=== PATIENT | female | born 1980 | race Caucasian/White ===

== ENCOUNTER 2020-12-14 10:32 | Emergency (ER) | payer BC ==
[2020-12-14] MEDS ORDERED: Nitrostat 0.4 MG (ED) SL ONE (10:43)
[2020-12-14] MEDS ORDERED: BABY ASPIRIN 81 MG CHEW PO ONE ×2 (10:43→11:02)
[2020-12-14] MEDS ORDERED: Sodium Chloride 0.9% 1000 ML 1,000 ML IV SCH (10:45)
[2020-12-14] MEDS ORDERED: Sodium Chloride 0.9% 1000 ML 1,000 ML ONE (10:58)
--- NOTE | 2020-12-14 11:00 | ERPHSYRPT ---
- History of Present Illness Time Seen by Provider: 12/14/20 10:57 Historian: patient Exam Limitations: no limitations Patient Subjective Stated Complaint: Pt states that for 2 days she has been having left chest discomfort with radiation to her left arm tingling in her fi ngers, feels like "ice" is going through her veins Triage Nursing Assessment: Pt brought self to [facility] and they sent her to the ER, vitals wnl, mild chest discomfort rated at 3/10, denies N&V, no edema, pulses normal, skin n/w/d, doesn't appear to be in any distress Physician History: Pt states that for 2 days she has been having left chest discomfort with radiation to her left arm tingling in her fingers, feels like "ice" is going through her veins Pt brought self to [facility] and they sent her to the ER, mild chest discomfort rated at 3/10, denies N&V, no edema, Timing/Duration: day(s) (two days) Activities at Onset: none Quality: fullness, tightness Location: substernal Chest Pain Radiation: arm Severity of Pain-Max: mild Severity of Pain-Current: mild Modifying Factors: Improves With: nothing Associated Symptoms: denies symptoms Prior Chest Pain/Cardiac Workup: no prior chest pain Nitro Today/Relief: no nitro taken today Aspirin Treatment Today: no aspirin today Body Map: 1 - chest tightmess 2 - tingling Allergies/Adverse Reactions: No Known Drug Allergies Allergy (Verified 12/14/20 10:50) Home Medications: Pantoprazole 20 mg [Protonix 20MG Tablet] 40 mg PO DAILY 07/17/15 [History] Amlodipine Besylate 5 mg [Norvasc 5 mg] 5 mg PO DAILY 12/14/20 [History] Lisinopril/Hydrochlorothiazide [Lisinopril-Hctz 20-12.5 mg Tab] 1 each PO BID 12/14/20 [History] Ondansetron ODT 4 MG [Zofran Odt 4 mg] 4 mg PO UD PRN 12/14/20 [History] Travel Risk - International Travel Have you traveled outside of the country in past 3 weeks: No - Coronavirus Screening Are you exhibiting any of the following symptoms?: No Close contact with a COVID-19 positive Pt in past 14-21 Days: No - Review of Systems Constitutional: No Fever, No Chills Eyes: No Symptoms Ears, Nose, & Throat: No Symptoms Respiratory: No Cough, No Dyspnea Cardiac: Chest Pain, No Edema, No Palpitations, No Syncope, No Orthopnea Abdominal/Gastrointestinal: No Abdominal Pain, No Nausea, No Vomiting, No Diarrhea Genitourinary Symptoms: No Dysuria Musculoskeletal: No Back Pain, No Neck Pain Skin: No Rash Neurological: No Dizziness, No Focal Weakness, No Sensory Changes Psychological: No Symptoms Endocrine: No Symptoms All Other Systems: Reviewed and Negative - Past Medical History Pertinent Past Medical History: Yes Neurological History: No Pertinent History ENT History: No Pertinent History Cardiac History: Hypertension Respiratory History: No Pertinent History Endocrine Medical History: No Pertinent History Musculoskeletal History: No Pertinent History GI Medical History: No Pertinent History History: No Pertinent History Psycho-Social History: No Pertinent History Female Reproductive Disorders: No Pertinent History - Past Surgical History Past Surgical History: Yes Neuro Surgical History: No Pertinent History Cardiac: No Pertinent History Respiratory: No Pertinent History Gastrointestinal: Cholecystectomy Genitourinary: No Pertinent History Female Surgical History: No Pertinent History Other Surgical History: ACL Repair leg knee - Social History Smoking Status: Current every day smoker How long have you smoked: 10yr Exposure to second hand smoke: Yes Drug Use: none Patient Lives Alone: No - Female History Hx Now: No - Nursing Vital Signs Nursing Vital Signs: Initial Vital Signs Temperature 99.1 F 12/14/20 10:39 Pulse Rate 79 12/14/20 10:39 Respiratory Rate 23 12/14/20 10:39 Blood Pressure 123/78 12/14/20 10:39 O2 Sat by Pulse Oximetry 100 12/14/20 10:39 Pain Scale Pain Intensity 3 - Physical Exam General Appearance: no apparent distress, alert Eye Exam: PERRL/EOMI, eyes nml inspection Ears, Nose, Throat Exam: normal ENT inspection, moist mucous membranes Neck Exam: normal inspection, non-tender, supple, full range of motion Respiratory Exam: normal breath sounds, lungs clear, No respiratory distress Cardiovascular Exam: regular rate/rhythm, normal heart sounds Gastrointestinal/Abdomen Exam: soft, No tenderness, No mass Back Exam: normal inspection, No CVA tenderness, No vertebral tenderness Extremity Exam: normal inspection, normal range of motion Neurologic Exam: alert, oriented x 3, cooperative, normal mood/affect, sensation nml, No motor deficits Skin Exam: normal color, warm, dry SpO2: 100 - Course Nursing assessment & vital signs reviewed: Yes EKG Interpreted by Me: Sinus Rhythm Rhythm Strip: Normal Sinus Rhythm - Radiology Exams Chest X-ray Interpretation: Reviewed by me, Negative Ordered Tests: Active Orders 24 hr Category Date Time Status Oxygen-ED Only Nasal Cannula 2 lpm Care 12/14/20 10:43 Active CHEST 1 VIEW (PORTABLE) Stat Exams 12/14/20 10:44 Taken CBC W DIFF Stat Lab 12/14/20 11:05 Completed CMP Stat Lab 12/14/20 11:05 Completed D-DIMER QUANTITATIVE Stat Lab 12/14/20 11:05 Completed NT PRO BNP Stat Lab 12/14/20 11:05 Completed TROPONIN Q3H Lab 12/14/20 11:05 Completed TROPONIN Q3H Lab 12/14/20 13:45 Ordered TROPONIN Q3H Lab 12/14/20 16:45 Ordered TROPONIN Q3H Lab 12/14/20 19:45 Ordered TROPONIN Q3H Lab 12/14/20 22:45 Ordered Medication Summary Generic Name Dose Route Start Last Admin Trade Name Freq PRN Reason Stop Dose Admin Sodium Chloride 1,000 mls @ 100 mls/hr 12/14/20 10:45 12/14/20 11:00 Sodium Chloride 0.9% 1000 Ml IV 01/13/21 10:44 100 mls/hr .Q10H DA Administration Discontinued Medications Generic Name Dose Route Start Last Admin Trade Name Freq PRN Reason Stop Dose Admin Aspirin 81 mg 12/14/20 10:43 12/14/20 11:03 Baby Aspirin 81 Mg Chew PO 12/14/20 10:44 Not Given STAT ONE Aspirin 324 mg 12/14/20 11:02 12/14/20 11:03 Baby Aspirin 81 Mg Chew PO 12/14/20 11:03 324 mg STAT ONE Administration Nitroglycerin 0.4 mg 12/14/20 10:43 12/14/20 11:01 Nitrostat 0.4 Mg (Ed) SL 12/14/20 10:44 0.4 mg STAT ONE Administration Lab/Rad Data: Laboratory Result Diagrams 12/14/20 11:05 12/14/20 11:05 Laboratory Results 12/14/20 12/14/20 12/14/20 Range/Units 11:05 11:05 11:05 WBC (4.0-10.5) K/mm3 RBC (4.1-5.4) M/mm3 Hgb (12.0-16.0) gm/dl Hct (35-47) % MCV (78-100) fl MCH (26-32) pg MCHC (32-36) g/dl RDW (11.5-14.0) % Plt Count (150-450) K/mm3 MPV (7.5-11.0) fl Gran % (36.0-66.0) % Eos # (Auto) (0-0.5) Absolute Lymphs (auto) (1.0-4.6) Absolute Monos (auto) (0.0-1.3) Lymphocytes % (24.0-44.0) % Monocytes % (0.0-12.0) % Eosinophils % (0.00-5.0) % Basophils % (0.0-0.4) % Absolute Granulocytes (1.4-6.9) Basophils # (0-0.4) D-Dimer 298 (215-500) ng/mL Sodium 138 (137-145) mmol/L Potassium 3.8 (3.5-5.1) mmol/L Chloride 101 (98-107) mmol/L Carbon Dioxide 26 (22-30) mmol/L Anion Gap 14.3 (5-15) MEQ/L BUN 14 (7-17) mg/dL Creatinine 0.76 (0.52-1.04) mg/dL Estimated GFR > 60.0 ML/MIN Glucose 94 (74-106) mg/dL Calcium 10.0 (8.4-10.2) mg/dL Total Bilirubin 0.50 (0.2-1.3) mg/dL AST 26 (14-36) U/L ALT 20 (0-35) U/L Alkaline Phosphatase 55 (38-126) U/L Troponin I < 0.012 (0.000-0.034) ng/mL NT-Pro-B Natriuret Pep 39.0 (0-450) pg/mL Serum Total Protein 8.4 H (6.3-8.2) g/dL Albumin 4.7 (3.5-5.0) g/dL 12/14/20 Range/Units 11:05 WBC 6.4 (4.0-10.5) K/mm3 RBC 4.55 (4.1-5.4) M/mm3 Hgb 14.2 (12.0-16.0) gm/dl Hct 44.3 (35-47) % MCV 97.4 (78-100) fl MCH 31.2 (26-32) pg MCHC 32.1 (32-36) g/dl RDW 12.8 (11.5-14.0) % Plt Count 303 (150-450) K/mm3 MPV 9.8 (7.5-11.0) fl Gran % 58.5 (36.0-66.0) % Eos # (Auto) 0.09 (0-0.5) Absolute Lymphs (auto) 1.87 (1.0-4.6) Absolute Monos (auto) 0.65 (0.0-1.3) Lymphocytes % 29.4 (24.0-44.0) % Monocytes % 10.2 (0.0-12.0) % Eosinophils % 1.4 (0.00-5.0) % Basophils % 0.5 (0.0-0.4) % Absolute Granulocytes 3.71 (1.4-6.9) Basophils # 0.03 (0-0.4) D-Dimer (215-500) ng/mL Sodium (137-145) mmol/L Potassium (3.5-5.1) mmol/L Chloride (98-107) mmol/L Carbon Dioxide (22-30) mmol/L Anion Gap (5-15) MEQ/L BUN (7-17) mg/dL Creatinine (0.52-1.04) mg/dL Estimated GFR ML/MIN Glucose (74-106) mg/dL Calcium (8.4-10.2) mg/dL Total Bilirubin (0.2-1.3) mg/dL AST (14-36) U/L ALT (0-35) U/L Alkaline Phosphatase (38-126) U/L Troponin I (0.000-0.034) ng/mL NT-Pro-B Natriuret Pep (0-450) pg/mL Serum Total Protein (6.3-8.2) g/dL Albumin (3.5-5.0) g/dL - Progress Progress: improved Air Movement: good Blood Culture(s) Obtained: No Antibiotics given: No Counseled pt/family regarding: lab results, diagnosis, need for follow-up, rad results - Departure Departure Disposition: Home Clinical Impression: Chest pain radiating to arm, BMI greater than 40 Hypertension Qualifiers: Hypertension type: essential hypertension Qualified Code(s): I10 - Essential (primary) hypertension Condition: Stable Critical Care Time: Yes Critical Care Time(excluding separately billable procedures): Critical 30-74 mins Referrals: MARILYN RICHTER MD [Primary Care Provider] - Follow Up with PCP/3 days Instructions: Chest Pain (DC) Additional Instructions: Discharge/Care Plan MOHAN IVY was seen on 12/14/20 in the Emergency Room. The patient was counseled regarding Diagnosis,Lab results, Imaging studies, need for follow up and when to return to the Emergency Room. Prescriptions given: Discharge Note I have spoken with the patient and/or caregivers. I have explained the patient's condition, diagnosis and treatment plan based on the information available to me at this time. I have answered the patient's and/or caregiver's questions and addressed any concerns. The patient and/or caregivers have as good understanding of the patient's diagnosis, condition and treatment plan as can be expected at this point. The vital signs have been stable. The patient's condition is stable and appropriate for discharge from the emergency department. The patient will pursue further outpatient evaluation with the primary care physician or other designated or consulting physician as outlined in the discharge instructions. The patient and/or caregivers are agreeable to this plan of care and follow-up instructions have been explained in detail. The patient and/or caregivers have received these instruction. The patient/and or caregivers are aware that any significant change in condition or worsening of symptoms should prompt an immediate return to this or the closest emergency department or call 911. MOHAN IVY was seen on 12/14/20 n the Emergency Room. At that time you were treated for an emergent condition, during your visit Laboratory, Radiology and/or other procedures may have been ordered. It is very important that you follow-up with your Primary Care Physician MARILYN RICHTER within the next 24- 48 hours to review your Emergency Room visit and the final results of testing that was ordered. Some test results such as Urine Cultures, Blood Cultures, and other cultures if ordered will not be finalized for 24-48 hours. If you do not have a Primary Care Provider please call the medical records department at [phone] ext [phone] to obtain a copy of your results or you may sign into our patient portal to obtain these results by visiting us @ [email or web address] and completing the following steps: 1. Click on the Patient Portal link 2. Click the Patient Self Enrollment Link to complete the enrollment form and entering your 3. Once the enrollment form is completed you will receive an email with a temporary ID and password at the email address you provided. 4. Next choose a user name and password. Your user name must be at least 4 characters long and your password must be at least 4 characters long. 5. Choose a security question from the list and provide your answer to the question. If you already have signed into the Health Portal you may access your Health Care Information 31/05 by the following steps: 1. Login to our website @ [email or web address] 2. Enter your original user name and password. FAQS The [facility] Health Portal is an online tool that contains your Lab Results, Radiology Reports, Visit History, Discharge Instructions and Health Summary Lab and Radiology Results will not be available for 72 hours on the portal. The Portal is a secure site, passwords are encryted and URLs are re-written so they cannot be copied and pasted. You and authorized family members are the only ones who can access your Portal. Also there is a timeout feature that protects your information if you leave the Portal page open. If you have technical difficulty please use the Contact Us link on the page this will allow you to submit any questions you have regarding the Portal or you may contact the Medical Record Department at [phone].
[2020-12-14 11:16] LABS: Absolute Neutrophil Ct (ANC) 3.71 (1.4-6.9); BASOPHIL % 0.5 % (0.0-0.4); Basophil (Absolute #) 0.03 (0-0.4); Eosinophil % 1.4 % (0.00-5.0); Eosinophil (Absolute #) 0.09 (0-0.5); Hematocrit 44.3 % (35-47); Hemoglobin 14.2 gm/dl (12.0-16.0); Lymphocyte (Absolute #) 1.87 (1.0-4.6); Lymphocytes % 29.4 % (24.0-44.0); Mean Cell Volume 97.4 fl (78-100); Mean Corpuscular Hemoglobin 31.2 pg (26-32); Mean Corpuscular Hgb Concent. 32.1 g/dl (32-36); Mean Platelet Volume 9.8 fl (7.5-11.0); Monocyte (Absolute #) 0.65 (0.0-1.3); Monocytes % 10.2 % (0.0-12.0); Neutrophil % 58.5 % (36.0-66.0); Platelet Count 303 K/mm3 (150-450); Red Blood Count 4.55 M/mm3 (4.1-5.4); Red Cell Distribution Width 12.8 % (11.5-14.0); White Blood Count 6.4 K/mm3 (4.0-10.5)
[2020-12-14 11:31] LABS: ALBUMIN 4.7 g/dL (3.5-5.0); ALKALINE PHOSPHATASE 55 U/L (38-126); ANION GAP 14.3 MEQ/L (5-15); BLOOD UREA NITROGEN 14 mg/dL (7-17); CHLORIDE 101 mmol/L (98-107); Carbon Dioxide 26 mmol/L (22-30); Creatinine 1 0.76 mg/dL (0.52-1.04); EST GLOMERULAR FILTRATION RATE > 60.0 ML/MIN; Glucose 94 mg/dL (74-106); Potassium 3.8 mmol/L (3.5-5.1); SGOT/AST 26 U/L (14-36); SGPT/ALT 20 U/L (0-35); SODIUM 138 mmol/L (137-145); Total Protein 8.4 g/dL (6.3-8.2)
[2020-12-14 12:00] VITALS: BP 112/70; PULSE 76; O2SAT 99
--- NOTE | 2020-12-14 19:50 | XRAY ---
Indication: Low-grade fever. Not feeling well. Left chest pain. Suspect Covid 19. Comparison: None Portable chest demonstrates normal heart, lungs, and bony thorax.
== END 2020-12-14 12:04 | disposition home or self-care (01) ==
LOC: ED 10:32
DX: I10 Essential (primary) hypertension (principal); R07.89 Other chest pain; Z79.899 Other long term (current) drug therapy
CPT/HCPCS: 36000; 36415; 71045; 80053; 83880; 84484; 85025; 85379; 93005; 96360; 99284; 99291; A9270-GY